=== PATIENT | female | born 1950 | race Caucasian/White ===

== ENCOUNTER → 2019-03-14 | Outpatient (CLI) | payer MEDICARE, OTHER ==
[~2019-03-14] MED LIST: ASPIR 8181 MG PO; NABUMETONE 750750 M1 PO; NORVASC10 MG PO; ZANAFLEX4 MG PO; ZANTAC 150MG T150 MG PO
== END ==
LOC: M.RAD 10:24
DX: Z12.31 Encounter for screening mammogram for malignant neoplasm of breast (principal)

== ENCOUNTER → 2020-09-17 | Outpatient (CLI) | payer MEDICARE | LOC: M.RAD 10:30 | PROVIDERS: ATTEND Family Medicine | DX: Z12.31 Encounter for screening mammogram for malignant neoplasm of breast (principal) ==

== ENCOUNTER 2021-03-27 02:17 | Emergency (ER) | payer MEDICARE ==
[~2021-03-27] VITALS: Ht 170.2 cm; Wt 99.8 kg
[2021-03-27] MEDS ORDERED: SUPER THERAVIT1 EACH PO (02:40)
[2021-03-27] MEDS ORDERED: CLONIDINE HCL0.1 M1 PO (02:41)
[2021-03-27] MEDS ORDERED: COZAAR 25 MG TA25 M1 PO (02:41)
[2021-03-27 03:12] LABS: ABSOLUTE BASOPHILS 0.1 thou/uL (0.0-0.2); ABSOLUTE EOSINOPHILS 0.2 thou/uL (0.0-0.7); ABSOLUTE LYMPHOCYTES 1.8 thou/uL (0.8-5.3); ABSOLUTE MONOCYTES 0.5 thou/uL (0.0-1.2); EOSINOPHILS 3.5 %; HEMATOCRIT 43.7 % (37.0-47.0); HEMOGLOBIN 14.7 gm/dL (12.0-15.0); LYMPHOCYTES 27.5 %; MCH 32.9 pg (26.0-34.0); MCHC 33.7 g/dL (28.0-37.0); MCV 97.7 fL (80.0-100.0); MONOCYTES 8.1 %; MPV 7.6 fl. (7.2-11.1); NUCLEATED RBCS 0 /100WBC; PLATELET COUNT* 262 thou/uL (150-400); POLYS 59.9 %; RBC 4.47 mil/uL (4.20-5.00); RDW-CV 13.5 % (10.5-14.5); WBC 6.7 thou/uL (4.0-11.0)
[2021-03-27 03:19] LABS: CALCIUM 9.9 mg/dL (8.5-10.1); CREATININE 0.8 mg/dL (0.6-1.3); POTASSIUM 3.9 mmol/L (3.5-5.1)
[2021-03-27 03:51] VITALS: BP 127/57
--- NOTE | 2021-03-27 16:46 | EKG ---
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1950 Requested By: Nelsy Ocampo Order Number: [id number] MD: Jimmy Garrison Measurements Intervals [place] Rate: 87 P: 69 MT: 215 QRS: 33 QRSD: 89 T: 79 QT: 378 QTc: 455 Interpretive Statements Sinus rhythm Borderline prolonged MT interval Left atrial enlargement Abnormal T, consider ischemia, lateral leads Baseline wander in lead(s) II,III,aVF Compared to ECG 10/09/2009 13:06:53 Atrial abnormality now present T-wave abnormality now present Possible ischemia now present Electronically Signed On 03-27-2021 16:45:51 CDT by Jimmy Garrison [email or web address] <ELECTRONICALLY SIGNED> By: Jimmy Garrison MD, [facility] 03/27/21 1645 3 3 Jimmy Garrison MD, [facility] /EPI
== END 2021-03-27 03:53 | disposition home or self-care (01) ==
LOC: M.ERS 02:17
PROVIDERS: Emergency Medicine
DX: I10 Essential (primary) hypertension (principal); M19.90 Unspecified osteoarthritis, unspecified site; Z88.0 Allergy status to penicillin; Z88.8 Allergy status to other drugs, medicaments and biological substances

== ENCOUNTER → 2021-04-03 | Outpatient (CLI) | payer MEDICARE ==
[~2021-04-03] MED LIST changes: +CLONIDINE HCL0.1 M1 PO; +COZAAR 25 MG TA25 M1 PO; +SUPER THERAVIT1 EACH PO
== END ==
LOC: M.MRI 11:05
PROVIDERS: ATTEND Family Medicine
DX: M54.12 Radiculopathy, cervical region (principal); M50.30 Other cervical disc degeneration, unspecified cervical region; E78.5 Hyperlipidemia, unspecified; I10 Essential (primary) hypertension; E78.49 Other hyperlipidemia; E83.52 Hypercalcemia; Z79.899 Other long term (current) drug therapy; Z88.0 Allergy status to penicillin; Z88.2 Allergy status to sulfonamides; Z88.1 Allergy status to other antibiotic agents

== ENCOUNTER → 2021-04-16 | Outpatient (CLI) | payer MEDICARE | LOC: M.ULTRA 07:12 | PROVIDERS: ATTEND Family Medicine | DX: I10 Essential (primary) hypertension (principal) ==

== ENCOUNTER → 2021-05-21 | Outpatient (CLI) | payer MEDICARE ==
[2021-05-21 09:16] LABS: CREATININE 0.9 mg/dL (0.6-1.3)
== END ==
LOC: M.LAB 08:40 → M.CT 10:00
PROVIDERS: ATTEND Family Medicine
DX: I70.1 Atherosclerosis of renal artery (principal); K55.1 Chronic vascular disorders of intestine; K76.0 Fatty (change of) liver, not elsewhere classified; K57.30 Diverticulosis of large intestine without perforation or abscess without bleeding; I10 Essential (primary) hypertension

== ENCOUNTER 2021-05-25 04:00 | Observation (INO) | payer MEDICARE ==
[~2021-05-25] VITALS: Ht 170.2 cm; Wt 99.8 kg
[~2021-05-25 04:00] MED LIST changes: -ASPIR 8181 MG PO; +CHILDREN'S ASPI81 M1 PO
[2021-05-25 04:07] VITALS: BP 178/91
[2021-05-25] MEDS ORDERED: BENICAR40 MG PO ×2 (04:15→09:48)
[2021-05-25] MEDS ORDERED: CATAPRES-TTS 20.2 MG TRANSDERM (04:15)
[2021-05-25] MEDS ORDERED: TOPROL XL50 MG PO (04:15)
[2021-05-25] MEDS ORDERED: FISH OIL 1,0001 EAC9 PO ×2 (04:15→09:48)
[2021-05-25] MEDS ORDERED: VITAMIN C250 MG PO (04:16)
[2021-05-25 04:53] LABS: ABSOLUTE BASOPHILS 0.1 thou/uL (0.0-0.2); ABSOLUTE EOSINOPHILS 0.2 thou/uL (0.0-0.7); ABSOLUTE LYMPHOCYTES 1.3 thou/uL (0.8-5.3); ABSOLUTE MONOCYTES 0.6 thou/uL (0.0-1.2); ABSOLUTE NEUTROPHILS 4.4 thou/uL (1.6-8.1); BASOPHILS 0.8 %; EOSINOPHILS 3.5 %; HEMATOCRIT 40.7 % (37.0-47.0); HEMOGLOBIN 13.9 gm/dL (12.0-15.0); LYMPHOCYTES 19.7 %; MCH 32.9 pg (26.0-34.0); MCV 96.6 fL (80.0-100.0); MONOCYTES 8.5 %; MPV 7.4 fl. (7.2-11.1); NUCLEATED RBCS 0 /100WBC; PLATELET COUNT* 225 thou/uL (150-400); POLYS 67.5 %; RBC 4.22 mil/uL (4.20-5.00); RDW-CV 13.2 % (10.5-14.5); WBC 6.5 thou/uL (4.0-11.0)
[2021-05-25 05:40] LABS: CREATININE 0.9 mg/dL (0.6-1.3); POTASSIUM 4.1 mmol/L (3.5-5.1)
[2021-05-25 05:51] LABS: ALBUMIN 3.5 g/dL (3.4-5.0); TOTAL BILIRUBIN 0.4 mg/dL (<0.1-1.0); TOTAL PROTEIN 7.2 g/dL (6.4-8.2)
--- NOTE | 2021-05-25 06:16 | NUR ---
PT OFF UNIT FOR CT
[2021-05-25 08:34] VITALS: BP 147/77
[2021-05-25] MEDS ORDERED: NORVASC10 MG PO ×2 (08:49→09:48)
[2021-05-25] MEDS ORDERED: HYDRALAZINE 2525 MG PO ×2 (08:59→09:49)
[2021-05-25 09:10] VITALS: BP 140/80
[2021-05-25 09:18] VITALS: BP 140/80
[2021-05-25] MEDS ORDERED: CHILDREN'S ASPI81 M1 PO (09:47)
[2021-05-25] MEDS ORDERED: SUPER THERAVIT1 EACH PO (09:47)
[2021-05-25] MEDS ORDERED: CATAPRES-TTS 20.2 MG TOP (09:48)
[2021-05-25] MEDS ORDERED: VITAMIN C250 M1 PO (09:48)
[2021-05-25] MEDS ORDERED: TOPROL XL50 MG (09:48)
--- NOTE | 2021-05-25 14:39 | EKG ---
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 : 1950 Requested By: Gabrielle Rocha Order Number: [id number] MD: Jimmy Garrison Measurements Intervals [place] Rate: 74 P: 56 MI: 182 QRS: 30 QRSD: 90 T: 27 QT: 398 QTc: 442 Interpretive Statements Sinus rhythm Left atrial enlargement Baseline wander in lead(s) I,V3,V4,V5,V6 Compared to ECG 03/27/2021 02:24:44 T-wave abnormality no longer present Possible ischemia no longer present Electronically Signed On 05-25-2021 14:39:42 CDT by Jimmy Garrison [email or web address] <ELECTRONICALLY SIGNED> By: Jimmy Garrison MD, [facility] 05/25/21 1439 5 5 Jimmy Garrison MD, [facility] /EPI
[2021-05-25 16:37] VITALS: BP 140/80
== END 2021-05-25 09:21 | disposition home or self-care (01) ==
LOC: M.ERS 04:00 → M.TBA-ER 05:53
PROVIDERS: Personal Emergency Response Attendant; ADMIT Internal Medicine; ATTEND Internal Medicine
DX: I16.0 Hypertensive urgency (principal); I15.0 Renovascular hypertension; Z20.822 Contact with and (suspected) exposure to COVID-19; I10 Essential (primary) hypertension; Q27.1 Congenital renal artery stenosis; M19.90 Unspecified osteoarthritis, unspecified site; Z88.0 Allergy status to penicillin; Z88.8 Allergy status to other drugs, medicaments and biological substances; Z79.82 Long term (current) use of aspirin; Z79.899 Other long term (current) drug therapy

== ENCOUNTER 2021-06-02 18:47 | Emergency (ER) | payer MEDICARE ==
[~2021-06-02] VITALS: Ht 170.2 cm; Wt 99.8 kg
[2021-06-02 20:43] LABS: HEMATOCRIT 39.6 % (37.0-47.0); HEMOGLOBIN 13.4 gm/dL (12.0-15.0); MCH 33.1 pg (26.0-34.0); MCHC 33.9 g/dL (28.0-37.0); MCV 97.6 fL (80.0-100.0); MPV 7.3 fl. (7.2-11.1); RBC 4.06 mil/uL (4.20-5.00); RDW-CV 13.7 % (10.5-14.5); WBC 7.7 thou/uL (4.0-11.0)
[2021-06-02 20:51] LABS: CALCIUM 9.7 mg/dL (8.5-10.1); POTASSIUM 4.3 mmol/L (3.5-5.1)
[2021-06-02 20:56] LABS: ALBUMIN 3.2 g/dL (3.4-5.0); TOTAL BILIRUBIN 0.2 mg/dL (<0.1-1.0); TOTAL PROTEIN 6.9 g/dL (6.4-8.2)
[2021-06-02 22:32] VITALS: BP 135/72
--- NOTE | 2021-06-03 13:50 | EKG ---
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1950 Requested By: Gabrielle Rocha Order Number: [id number] MD: Pablito Varela Measurements Intervals [place] Rate: 110 P: 57 MS: 184 QRS: 12 QRSD: 93 T: 71 QT: 336 QTc: 455 Interpretive Statements Sinus tachycardia Probable left atrial enlargement Low voltage, precordial leads Nonspecific T abnormalities, lateral leads Compared to ECG 05/25/2021 04:06:15 Low QRS voltage now present T-wave abnormality now present Sinus rhythm no longer present Electronically Signed On 06-03-2021 13:50:00 CDT by Pablito Varela [email or web address] <ELECTRONICALLY SIGNED> By: Pablito Varela MD, [facility] 06/03/21 1350 190 1906 Pablito Varela MD, [facility] /EPI
== END 2021-06-02 22:37 | disposition home or self-care (01) ==
LOC: M.ERS 18:47
PROVIDERS: Personal Emergency Response Attendant
DX: I16.0 Hypertensive urgency (principal); I10 Essential (primary) hypertension; M19.90 Unspecified osteoarthritis, unspecified site; Z88.0 Allergy status to penicillin; Z88.8 Allergy status to other drugs, medicaments and biological substances

== ENCOUNTER → 2021-06-02 | Outpatient (CLI) | payer MEDICARE ==
[2021-06-02] VITALS (7 sets, daily range): BP systolic 123–158; BP diastolic 67–87
[~2021-06-02] VITALS: Ht 170.2 cm; Wt 102.1 kg
[~2021-06-02] MED LIST changes: +BENICAR40 MG PO; +CATAPRES-TTS 20.2 MG TOP; +CATAPRES-TTS 20.2 MG TRANSDERM; +FISH OIL 1,0001 EAC9 PO; +HYDRALAZINE 2525 MG PO; +TOPROL XL50 MG; +TOPROL XL50 MG PO; +VITAMIN C250 M1 PO; +VITAMIN C250 MG PO
--- NOTE | 2021-06-02 12:39 | NUR ---
PATIENT WAS GIVEN 600 MG OF PLAVIX PO AT 1130 AM. VERBAL ORDERED BY
== END | disposition home or self-care (01) ==
LOC: M.INT 05-25 08:59
PROVIDERS: ATTEND Radiology Diagnostic Radiology
DX: I15.0 Renovascular hypertension (principal); I70.1 Atherosclerosis of renal artery; I77.3 Arterial fibromuscular dysplasia; I10 Essential (primary) hypertension; M19.90 Unspecified osteoarthritis, unspecified site; Z98.890 Other specified postprocedural states; Z79.899 Other long term (current) drug therapy

== ENCOUNTER 2021-06-03 01:13 | Emergency (ER) | payer MEDICARE ==
[~2021-06-03] VITALS: Ht 170.2 cm; Wt 99.8 kg
[2021-06-03 05:13] VITALS: BP 179/96
== END 2021-06-03 05:13 | disposition home or self-care (01) ==
LOC: M.ERS 01:13
DX: I16.0 Hypertensive urgency (principal); Z88.0 Allergy status to penicillin; Z88.8 Allergy status to other drugs, medicaments and biological substances; Z79.82 Long term (current) use of aspirin; Z79.899 Other long term (current) drug therapy; Z98.890 Other specified postprocedural states

== ENCOUNTER → 2021-06-18 | Outpatient (CLI) | payer MEDICARE | LOC: M.INT 06-02 15:23 → M.ULTRA 07:13 | PROVIDERS: ATTEND Radiology Diagnostic Radiology | DX: I15.0 Renovascular hypertension (principal); I70.1 Atherosclerosis of renal artery ==

== ENCOUNTER → 2021-07-09 | Outpatient (CLI) | payer MEDICARE ==
[~2021-07-09] VITALS: Ht 170.2 cm; Wt 98.4 kg
[2021-07-09 10:17] VITALS: BP 152/83
== END ==
LOC: M.INT 06-29 10:00
PROVIDERS: ATTEND Radiology Diagnostic Radiology
DX: I77.3 Arterial fibromuscular dysplasia (principal)

== ENCOUNTER → 2021-10-14 | Outpatient (CLI) | payer MEDICARE | LOC: M.ULTRA 07:06 → M.RAD 07:06 → M.ULTRA 07:30 | PROVIDERS: ATTEND Nurse Practitioner Family | DX: Z12.31 Encounter for screening mammogram for malignant neoplasm of breast (principal); K76.0 Fatty (change of) liver, not elsewhere classified ==

== ENCOUNTER → 2021-11-05 | Outpatient (CLI) | payer MEDICARE | LOC: M.ULTRA 07:07 | PROVIDERS: ATTEND Nurse Practitioner Family | DX: E04.1 Nontoxic single thyroid nodule (principal); E21.5 Disorder of parathyroid gland, unspecified ==